=== PATIENT | male | born 2000 | race Two or more races ===

== ENCOUNTER 2020-10-16 23:24 | Emergency (ER) | payer OTHER ==
[~2020-10-16] VITALS: Ht 177.8 cm; Wt 82.0 kg
[2020-10-17 00:30] VITALS: BP 128/73
[2020-10-17] MEDS ORDERED: PERTUSS(ACELL),DIPH,TET VAC/PF 0.5 ML SYRINGE IM. ONE (01:15)
[2020-10-17] MEDS ORDERED: ACETAMINOPHEN 500 MG TABLET PO ONE (01:45)
== END 2020-10-17 01:47 | disposition home or self-care (01) ==
LOC: EMS 23:26
DX: S01.01XA Laceration without foreign body of scalp, initial encounter (principal); W22.8XXA Striking against or struck by other objects, initial encounter; Y93.89 Activity, other specified; Y92.89 Other specified places as the place of occurrence of the external cause; Y99.8 Other external cause status
CPT/HCPCS: 12001; 90471; 90715; 99283